=== PATIENT | male | born 1980 | race Caucasian/White ===

== ENCOUNTER 2018-04-06 19:28 | Emergency (ER) | payer MEDICAID, OTHER ==
[~2018-04-06] VITALS: Ht 180.3 cm; Wt 111.1 kg
--- NOTE | 2018-04-06 19:42 | ED General ---
General Stated Complaint: SEIZURE History of Present Illness Date Seen by Provider: Apr 06, 2018 Time Seen by Provider: 19:34 The patient is a very pleasant 37-year-old male who presents for evaluation of seizure-like activity. He states that he had a laparoscopic cholecystectomy earlier today and was discharged home from same day surgery. He states that approximately 4 hours after the surgery was done he took a hydrocodone which he had been prescribed and shortly after that had 2 episodes of seizure-like activity which he states was witnessed by his . He tells me that he has never had a seizure in his life. He denies any history of alcohol abuse or substance abuse. He arrives in the emergency department via EMS. His is not yet here to provide any additional history. His only complaint currently is that he is extremely thirsty. He specifically denies headache, neck pain, vision changes, focal weakness or numbness, chest pain, shortness of breath, abdominal or back pain, fevers or chills, nausea or vomiting. He states that he feels "pretty good" at this time. Allergies and Home Medications Allergies Coded Allergies: morphine (Verified Allergy, Unknown, 04/06/18) Patient Home Medication List Home Medication List Reviewed: Yes Review of Systems Review of Systems Constitutional: no symptoms reported EENTM: other (dry mouth) Respiratory: no symptoms reported Cardiovascular: no symptoms reported Gastrointestinal: abdominal pain (mild generalized) Genitourinary: no symptoms reported Musculoskeletal: no symptoms reported Skin: no symptoms reported Psychiatric/Neurological: Seizure Hematologic/Lymphatic: No Symptoms Reported Immunological/Allergic: no symptoms reported All Other Systems Reviewed Negative Unless Noted: Yes Past Wcwdhoq-Dtsnzu-Mmbrdr Hx Past Med/Social Hx: Reviewed Nursing Past Med/Soc Hx Patient Social History Recent Foreign Travel: No Contact w/Someone Who Travel: No Family Medical History Reviewed Nursing Family Hx Physical Exam Vital Signs Vital Signs - First Documented 04/06/18 20:00 Temp 97.6 Pulse 89 Resp 20 B/P (MAP) 155/92 (113) Capillary Refill : Height, Weight, BMI Height: '" Weight: lbs. oz. kg; BMI Method: General Appearance: No Apparent Distress, WD/WN HEENT: PERRL/EOMI, TMs Normal, Pharynx Normal, Other (dry mucous membranes) Neck: Full Range of Motion, Normal Inspection, Non Tender, Supple Respiratory: Chest Non Tender, Lungs Clear, Normal Breath Sounds, No Accessory Muscle Use, No Respiratory Distress Cardiovascular: Regular Rate, Rhythm, No Edema, No Gallop Gastrointestinal: Normal Bowel Sounds, No Organomegaly, No Pulsatile Mass, Tenderness, Other (laparoscopic surgical wounds noted, no bleeding/drainage, diffuse mild tenderness, no distention) Extremity: Normal Capillary Refill, Normal Inspection Neurologic/Psychiatric: Alert, Oriented x3, No Motor/Sensory Deficits, Normal Mood/Affect, sponge hooker II-XII Norm as Tested Skin: Normal Color, Warm/Dry Progress/Results/Core Measures Suspected Sepsis SIRS Temperature: Pulse: Respiratory Rate: Laboratory Tests 04/06/18 20:20: White Blood Count 18.2H Blood Pressure / Mean: Laboratory Tests 04/06/18 20:20: Creatinine 0.96, Platelet Count 306, Total Bilirubin 1.2H Results/Orders Lab Results Laboratory Tests Test 04/06/18 20:20 Range/Units White Blood Count 18.2 H 4.3-11.0 10^3/uL Red Blood Count 5.02 4.35-5.85 10^6/uL Hemoglobin 14.3 13.3-17.7 G/DL Hematocrit 43 40-54 % Mean Corpuscular Volume 85 80-99 FL Mean Corpuscular Hemoglobin 28 25-34 PG Mean Corpuscular Hemoglobin Concent 34 32-36 G/DL Red Cell Distribution Width 12.3 10.0-14.5 % Platelet Count 306 130-400 10^3/uL Mean Platelet Volume 10.3 7.4-10.4 FL Neutrophils (%) (Auto) 92 H 42-75 % Lymphocytes (%) (Auto) 5 L 12-44 % Monocytes (%) (Auto) 3 0-12 % Eosinophils (%) (Auto) 0 0-10 % Basophils (%) (Auto) 0 0-10 % Neutrophils # (Auto) 16.8 H 1.8-7.8 X 10^3 Lymphocytes # (Auto) 0.8 L 1.0-4.0 X 10^3 Monocytes # (Auto) 0.5 0.0-1.0 X 10^3 Eosinophils # (Auto) 0.0 0.0-0.3 10^3/uL Basophils # (Auto) 0.0 0.0-0.1 10^3/uL Sodium Level 139 135-145 MMOL/L Potassium Level 4.1 3.6-5.0 MMOL/L Chloride Level 101 98-107 MMOL/L Carbon Dioxide Level 20 L 21-32 MMOL/L Anion Gap 18 H 5-14 MMOL/L Blood Urea Nitrogen 14 7-18 MG/DL Creatinine 0.96 0.60-1.30 MG/DL Estimat Glomerular Filtration Rate > 60 BUN/Creatinine Ratio 15 Glucose Level 138 H 70-105 MG/DL Calcium Level 8.8 8.5-10.1 MG/DL Corrected Calcium 8.6 8.5-10.1 MG/DL Total Bilirubin 1.2 H 0.1-1.0 MG/DL Aspartate Amino Transf (AST/SGOT) 37 H 5-34 U/L Alanine Aminotransferase (ALT/SGPT) 57 H 0-55 U/L Alkaline Phosphatase 72 40-136 U/L Total Protein 6.7 6.4-8.2 GM/DL Albumin 4.2 3.2-4.5 GM/DL My Orders Orders - MAXIM JADE DO Comprehensive Metabolic Panel (04/06/18 19:42) Saline Lock/Iv-Start (04/06/18 19:42) Cbc With Automated Diff (04/06/18 19:42) Ekg Tracing (04/06/18 19:42) Lorazepam Injection (Ativan Injection) (04/06/18 20:15) Ketorolac Injection (Toradol Injection) (04/06/18 20:15) Ns Iv 1000 Ml (Sodium Chloride 0.9%) (04/06/18 20:15) Manual Differential (04/06/18 20:20) Medications Given in ED Current Medications Medications Dose Ordered Sig/Miryam Route Start Time Stop Time Status Last Admin Dose Admin Lorazepam 1 mg ONCE ONCE IVP 04/06/18 20:15 04/06/18 20:16 DC 04/06/18 20:31 1 MG Vital Signs/I&O 04/06/18 20:00 Temp 97.6 Pulse 89 Resp 20 B/P (MAP) 155/92 (113) Capillary Refill : ECG Initial ECG Impression Date: Apr 06, 2018 Initial ECG Impression Time: 19:49 Initial ECG Rate: 77 Initial ECG Rhythm: Normal Sinus Initial ECG Intervals: Normal Initial ECG Impression: Normal Comment no acute ischemic findings, no STEMI, reviewed and interpreted by myself Departure Impression Primary Impression: Witnessed seizure-like activity Disposition: XFER SHT-TRM HOSP Condition: Stable Transfer Time Spoke to Accepting Phy: 20:35 Transfer Progress Notes @2034 - Brody Davis LITHOGRAPHING MACHINE OPERATOR at [facility] accepts the ER-to-ER transfer. Pt will require a head CT but our CT scanner is down. Pt is agreeable to the transfer. Pt is stable. No seizure-like activity since arrival. @2104 - Lab abnormalities likely secondary to surgery today. The patient is stable for transfer at this time. He has received 1 L of fluids IV and 1 mg of Ativan IV. He continues to be A and O 4. Transfer Time: 20:35 Transfer Facility: [facility] Method of Transfer: EMS Departure-Patient Inst. Referrals: UNKNOWN (PCP/Family) Primary Care Physician MAXIM JADE DO Apr 06, 2018 19:41
[2018-04-06] MEDS ORDERED: LORazepam INJ 2 MG/ML (ATIVAN) VIAL IVP ONE (20:15)
[2018-04-06] MEDS ORDERED: KETOROLAC 30 MG/ML VIAL IVP ONE (20:15)
[2018-04-06] MEDS ORDERED: NS IV 1000 ML 1,000 ML IV SCH (20:15)
--- NOTE | 2018-04-06 20:31 | NUR ---
to room to give ativan and toradol, patient refuses toradol at this time. denies pain. Dr hoover
[2018-04-06 20:36] LABS: HEMATOCRIT 43 % (40-54); HEMOGLOBIN 14.3 G/DL (13.3-17.7); LYMPHOCYTES % (AUTO) 5 % (12-44); MEAN CORPUSCULAR HEMOGLOBIN 28 PG (25-34); MEAN CORPUSCULAR HGB CONC 34 G/DL (32-36); MEAN CORPUSCULAR VOLUME 85 FL (80-99); MEAN PLATELET VOLUME 10.3 FL (7.4-10.4); MONOCYTES % (AUTO) 3 % (0-12); NEUTROPHILS % (AUTO) 92 % (42-75); PLATELET COUNT 306 10^3/uL (130-400); RED CELL DISTRIBUTION WIDTH 12.3 % (10.0-14.5); WHITE BLOOD COUNT 18.2 10^3/uL (4.3-11.0)
[2018-04-06 20:37] LABS: BASOPHILS % (AUTO) 0 % (0-10); EOSINOPHILS % (AUTO) 0 % (0-10); LYMPHOCYTES # (AUTO) 0.8 X 10^3 (1.0-4.0); MONOCYTES # (AUTO) 0.5 X 10^3 (0.0-1.0); NEUTROPHILS # (AUTO) 16.8 X 10^3 (1.8-7.8)
[2018-04-06] MEDS ORDERED: HYDROCO/APAP TAB 5-325MG (20:52)
[2018-04-06] MEDS ORDERED: PANTOPRAZOLE TAB 40MG (20:52)
[2018-04-06] MEDS ORDERED: LEVOTHYROXINE 112 MCG (20:52)
[2018-04-06 21:02] LABS: CHLORIDE 101 MMOL/L (98-107); POTASSIUM 4.1 MMOL/L (3.6-5.0); SODIUM 139 MMOL/L (135-145)
[2018-04-06 21:03] LABS: ALANINE AMINOTRANSFERASE 57 U/L (0-55); ALBUMIN 4.2 GM/DL (3.2-4.5); ALKALINE PHOSPHATASE 72 U/L (40-136); BILIRUBIN,TOTAL 1.2 MG/DL (0.1-1.0); BUN/CREATININE RATIO 15; CALCIUM 8.8 MG/DL (8.5-10.1); CARBON DIOXIDE 20 MMOL/L (21-32); CREATININE SERUM 0.96 MG/DL (0.60-1.30); GFR ESTIMATED > 60; GLUCOSE 138 MG/DL (70-105); TOTAL PROTEIN 6.7 GM/DL (6.4-8.2)
[2018-04-06 21:05] LABS: BAND NEUTROPHILS 5 %; LYMPHOCYTES % (MANUAL) 4 %; MONOCYTES % (MANUAL) 5 %; NEUTROPHILS % (MANUAL) 86 %
--- NOTE | 2018-04-06 21:16 | NUR ---
patient c/o pain, toradol now given
--- NOTE | 2018-04-06 22:00 | NUR ---
patient standing at bedside with staff to use the urinal
--- NOTE | 2018-04-06 22:50 | NUR ---
EMS here to tranport patient to [facility]
--- NOTE | 2018-04-07 00:06 | ED General ---
General Chief Complaint: Dizziness/Syncope Stated Complaint: SEIZURE Nursing Triage Note: patient verbalizes witnessed seizure with incontinence arrived via EMS Nursing Sepsis Screen: No Definite Risk Source of Information: Patient History of Present Illness Date Seen by Provider: Apr 06, 2018 Time Seen by Provider: 23:42 Initial Comments PT ARRIVES VIA EMS FROM [facility] PT IS HERE FOR CT OF HEAD, CT SCANNER AT [facility] IS DOWN AT THIS TIME 2317--RECEIVED CALL FROM DR. PAN, [facility]. HE REPORTS THAT PT IS DOING FINE NOW, AND IF CT SCAN OF HEAD IS NORMAL, HE WAS PLANNING ON SENDING PT HOME. PT HAD LAP CHOLECYST[facility]OM[facility] D[facility] TODAY [facility] BY [facility] APARICIO PT STATES HE "FELT GREAT" AFTER SURGERY, BUT "WAS A LITTLE LOOPY OFF AND ON FROM THE MEDICATIONS" STATES HE GOT HOME AROUND [id number] STATES HE TOOK HIS FIRST DOSE OF PAIN MEDICATION AROUND 1600--HYDROCODONE 5/325 SHORTLY AFTER TAKING THE MEDICATION, HE STATES HE "GOT COLD AND EVERYTHING GOT WHITE, AND I CALLED FOR MY , AND I LOOKED UP AND I SAW HER FACE AND IT WAS LIKE IT WAS IN A TUNNEL, THEN I WOKE UP COVERED IN URINE" STATES HE WAS NOT CONFUSED AT ALL WHEN HE WOKE UP. TOLD HIM THAT HE WAS SHAKING IN HIS ARMS AND LEGS AND HIS EYES ROLLED BACK EPISODE LASTED 40 SECONDS CALLED EMS, THEN REFUSED TRANSPORT PT STATES HE WAS DOING BETTER, THEN STATES " SOON I SAT UP I PASSED OUT OR HAD A SEIZURE--EVERYTHING KRYSTEN OUT AND EVERYTHING GOT BUZZY AND WHITE" AND "WOKE UP WITH SWEATS AND WAS REAL COLD" IS NOT SURE HOW LONG SECOND EPISODE LASTED CALLED EMS AGAIN AROUND 1800, AND THEN WENT TO [facility] PT HAS BEEN FINE SINCE THAT TIME PT STATES HE FEELS COMPLETELY FINE NOW. DOES HAVE SOME POST OP PAIN AND BLOATING FROM THE PROCEDURE NO NAUSEA/VOMITING NO CHEST PAIN NO SHORTNESS OF BREATH NO PALPITATIONS STATES HIS FINGERTIPS AND HIS HEELS WERE TINGLY AT THE TIME OF THE EPISODES, BUT NOT NOW. NO MOTOR DEFICITS. NO HISTORY OF SIMILAR STATES HE IS ALLERGIC TO MORPHINE, BUT IS NOT SURE OF REACTION PT DID EVENTUALLY AGREE TO ATIVAN AND TORADOL AT [facility] PT HAS NOT HAD ANYTHING TO EAT SINCE THE NIGHT BEFORE SURGERY HAS ONLY HAD SOME WATER AND ICE CHIPS TODAY. Allergies and Home Medications Allergies Coded Allergies: morphine (Verified Allergy, Unknown, 04/06/18) Patient Home Medication List Home Medication List Reviewed: Yes Review of Systems Review of Systems Constitutional: see HPI EENTM: no symptoms reported Respiratory: no symptoms reported Cardiovascular: see HPI; No chest pain, No palpitations; syncope Gastrointestinal: see HPI Genitourinary: incontinence Musculoskeletal: no symptoms reported Skin: no symptoms reported Psychiatric/Neurological: See HPI, Anxiety; Denies Headache Past Ycafadj-Bibaox-Kskehe Hx Past Med/Social Hx: Reviewed Nursing Past Med/Soc Hx Patient Social History Alcohol Use: Denies Use Recreational Drug Use: No Smoking Status: Never a Smoker 2nd Hand Smoke Exposure: No Recent Foreign Travel: No Contact w/Someone Who Travel: No Recent Infectious Disease Expo: No Recent Hopitalizations: No Physical Abuse: No Sexual Abuse: No Mistreated: No Fear: No Seasonal Allergies Seasonal Allergies: No Past Medical History Surgeries: Yes Appendectomy, Gallbladder, Tonsillectomy Respiratory: No Cardiac: No Neurological: No Gastrointestinal: Yes (FATTY LIVER; S/P CHOLECYSTECTOMY) Gastroesophageal Reflux, Liver Disease/Jaundice, Gall Bladder Disease Musculoskeletal: No Endocrine: Yes Hypothyroidsim HEENT: No Cancer: No Psychosocial: No Integumentary: No Blood Disorders: No Family Medical History Reviewed Nursing Family Hx Physical Exam Vital Signs Vital Signs - First Documented 04/06/18 04/06/18 20:00 23:43 Temp 97.6 Pulse 89 Resp 20 B/P (MAP) 155/92 (113) Pulse Ox 96 O2 Delivery Room Air Capillary Refill : Less Than 3 Seconds Height, Weight, BMI Height: 5'11.00" Weight: 245lbs. oz. 111.836549rv; BMI Method:Stated General Appearance: No Apparent Distress, WD/WN, Other (TALKING NON-STOP AT GREAT LENGTH.L LAUGHING/JOKING. DOES NOT APPEAR TO BE IN ANY DISCOMFORT OR DISTRESS. ) HEENT: PERRL/EOMI Respiratory: Normal Breath Sounds, No Accessory Muscle Use, No Respiratory Distress Cardiovascular: Regular Rate, Rhythm, No Edema, No JVD, No Murmur, Normal Peripheral Pulses Gastrointestinal: Soft, Tenderness (RUQ AND EPIGASTRIC TENDERNESS. INCISIONS AND DRESSINGS ARE INTACT. NO DRAINAGE OR BLEEDING) Neurologic/Psychiatric: Alert, Oriented x3, No Motor/Sensory Deficits, Normal Mood/Affect, luggage liner II-XII Norm as Tested Skin: Normal Color, Warm/Dry Progress/Results/Core Measures Suspected Sepsis Recent Fever Within 48 Hours: No Infection Criteria Present: None New/Unexplained Altered Menta: No Sepsis Screen: No Definite Risk SIRS Temperature:97.6 Pulse: 89 Respiratory Rate: 20 Laboratory Tests 04/06/18 20:20: White Blood Count 18.2H Blood Pressure 155 /92 Mean: 113 Laboratory Tests 04/06/18 20:20: Creatinine 0.96, Platelet Count 306, Total Bilirubin 1.2H Results/Orders Lab Results Laboratory Tests Test 04/06/18 20:20 Range/Units White Blood Count 18.2 H 4.3-11.0 10^3/uL Red Blood Count 5.02 4.35-5.85 10^6/uL Hemoglobin 14.3 13.3-17.7 G/DL Hematocrit 43 40-54 % Mean Corpuscular Volume 85 80-99 FL Mean Corpuscular Hemoglobin 28 25-34 PG Mean Corpuscular Hemoglobin Concent 34 32-36 G/DL Red Cell Distribution Width 12.3 10.0-14.5 % Platelet Count 306 130-400 10^3/uL Mean Platelet Volume 10.3 7.4-10.4 FL Neutrophils (%) (Auto) 92 H 42-75 % Lymphocytes (%) (Auto) 5 L 12-44 % Monocytes (%) (Auto) 3 0-12 % Eosinophils (%) (Auto) 0 0-10 % Basophils (%) (Auto) 0 0-10 % Neutrophils # (Auto) 16.8 H 1.8-7.8 X 10^3 Lymphocytes # (Auto) 0.8 L 1.0-4.0 X 10^3 Monocytes # (Auto) 0.5 0.0-1.0 X 10^3 Eosinophils # (Auto) 0.0 0.0-0.3 10^3/uL Basophils # (Auto) 0.0 0.0-0.1 10^3/uL Neutrophils % (Manual) 86 % Lymphocytes % (Manual) 4 % Monocytes % (Manual) 5 % Band Neutrophils 5 % Sodium Level 139 135-145 MMOL/L Potassium Level 4.1 3.6-5.0 MMOL/L Chloride Level 101 98-107 MMOL/L Carbon Dioxide Level 20 L 21-32 MMOL/L Anion Gap 18 H 5-14 MMOL/L Blood Urea Nitrogen 14 7-18 MG/DL Creatinine 0.96 0.60-1.30 MG/DL Estimat Glomerular Filtration Rate > 60 BUN/Creatinine Ratio 15 Glucose Level 138 H 70-105 MG/DL Calcium Level 8.8 8.5-10.1 MG/DL Corrected Calcium 8.6 8.5-10.1 MG/DL Total Bilirubin 1.2 H 0.1-1.0 MG/DL Aspartate Amino Transf (AST/SGOT) 37 H 5-34 U/L Alanine Aminotransferase (ALT/SGPT) 57 H 0-55 U/L Alkaline Phosphatase 72 40-136 U/L Total Protein 6.7 6.4-8.2 GM/DL Albumin 4.2 3.2-4.5 GM/DL My Orders Orders - CYNTHIA CISNEROS DO Ct Head Wo (04/06/18 23:42) Incentive Spirometry Initial (04/07/18 00:51) Incentive Spirometry (Nursing) Q2H (04/07/18 00:51) Medications Given in ED Current Medications Medications Dose Ordered Sig/Miryam Route Start Time Stop Time Status Last Admin Dose Admin Ketorolac Tromethamine 30 mg ONCE ONCE IVP 04/06/18 20:15 04/06/18 20:16 DC 04/06/18 21:16 30 MG Lorazepam 1 mg ONCE ONCE IVP 04/06/18 20:15 04/06/18 20:16 DC 04/06/18 20:31 1 MG Vital Signs/I&O 04/06/18 04/06/18 04/07/18 04/07/18 20:00 23:43 00:55 01:24 Temp 97.6 97.5 Pulse 89 99 70 Resp 20 18 16 B/P (MAP) 155/92 (113) 146/93 149/97 (114) Pulse Ox 96 97 O2 Delivery Room Air Room Air Room Air 04/07/18 00:00 Intake Total 400 ml Balance 400 ml Capillary Refill : Less Than 3 Seconds Blood Pressure Mean: 113 Progress Note : Progress Note PT HAD NO COMPLAINTS DURING ER STAY FREQUENT BELCHING, AND TALKS AT LENGTH ABOUT THE "CO2 GAS BUILDUP" IN HIS ABDOMEN PT REQUESTS INCENTIVE SPIROMETER AT DISMISSAL, "FOR THE GAS BUILD UP"--RT INSTRUCTED ON USE WILL DEFER TO PT'S SURGEON FOR FURTHER PAIN MEDICATIONS--PT ADVISED TO CALL HIS SURGEON LATER THIS MORNING FOR FOLLOW UP Diagnostic Imaging Comments CT HEAD--NO ACUTE PROCESS, PER [facility] VIA FAX @ [phone] Reviewed: Reviewed by Me Departure Impression Primary Impression: Witnessed seizure-like activity Additional Impressions: S/P laparoscopic cholecystectomy POSSIBLE ADVERSE MEDICATION REACTION Disposition: HOME, SELF-CARE Condition: Improved Transfer Time Spoke to Accepting Phy: 20:35 Departure-Patient Inst. Referrals: [facility] (PCP) Primary Care Physician USHA FELIX APRN (Family) Primary Care Physician Patient Instructions: Adverse Drug Reactions, Adult (DC), Seizures, Adult (DC) , Syncope (Fainting) (DC) Add. Discharge Instructions: LOTS OF CLEAR LIQUIDS--WATER, BROTH, JELLO, GATORADE DIET ADVISED BY YOUR SURGEON FOLLOW UP WITH YOUR SURGEON TODAY FOR FURTHER CARE RETURN TO ER IF WORSE All discharge instructions reviewed with patient and/or family. Voiced understanding. CYNTHIA CISNEROS DO Apr 07, 2018 00:06
[2018-04-07 00:55] VITALS: BP 149/97
--- NOTE | 2018-04-07 07:20 | Diagnostic Imaging Report ---
PROCEDURE: CT head without contrast. TECHNIQUE: Multiple contiguous axial images were obtained through the brain without the use of intravenous contrast. INDICATION: Seizure. The ventricles are normal in size, shape and position. There are no masses or hemorrhages. There are no extra-axial fluid collections. IMPRESSION: Negative CT head. I agree with preliminary interpretation. Dictated by: Dictated on workstation # [id number]
== END 2018-04-07 01:06 | disposition home or self-care (01) ==
LOC: EDUNIT# 19:28 → ER FS 19:30 → ER 04-07 01:06
DX: R25.9 Unspecified abnormal involuntary movements (principal); K21.9 Gastro-esophageal reflux disease without esophagitis; E03.9 Hypothyroidism, unspecified; Z87.19 Personal history of other diseases of the digestive system; Z90.49 Acquired absence of other specified parts of digestive tract; Z88.5 Allergy status to narcotic agent; Z90.89 Acquired absence of other organs
CPT/HCPCS: 36415; 70450; 80053; 85007; 85027; 94664; 96374; 96375

== ENCOUNTER → 2018-11-23 | Outpatient (CLI) | payer MEDICAID ==
[~2018-11-23] MED LIST: CATHETER FLUSH 10 ML SYR IV PRN; HOLD METFORMIN - RECEIVED CONTRAST 20 ML VIAL IV SCH; HYDROCO/APAP TAB 5-325MG; IOHEXOL 350 MG/ML 100 ML (OMNIPAQUE 350) VIAL IV ONE; LEVOTHYROXINE 112 MCG; NS 100 ML (IVPB) BAG IV ONE; PANTOPRAZOLE TAB 40MG
--- NOTE | 2018-11-23 10:50 | Diagnostic Imaging Report ---
PROCEDURE: CT abdomen and pelvis with and without contrast. TECHNIQUE: Precontrast acquisitions were acquired through the abdomen and pelvis. Multiple contiguous axial images were obtained through the abdomen and pelvis after the administration of intravenous contrast. Auto Exposure Controls were utilized during the CT exam to meet ALARA standards for radiation dose reduction. INDICATION: Suprapubic pain and abdominal wall mass as well as gross hematuria. COMPARISON: No prior studies are available for comparison. FINDINGS: The lung bases are clear. The liver demonstrates mild generalized low density consistent with hepatic steatosis. No discrete liver mass is detected. The gallbladder is surgically absent. No biliary ductal dilatation is seen. The pancreas and spleen are unremarkable. No adrenal mass is detected. Kidneys are unremarkable. No calculi are seen. There is no hydronephrosis. Aorta is non-aneurysmal. No central, retroperitoneal or mesenteric lymphadenopathy is detected. The bladder is unremarkable. Prostate is unremarkable. No definite iliac or inguinal lymphadenopathy is seen. There is a small nodule in the midline of the upper pelvis anteriorly anterior to the sigmoid measuring 15 mm x 11 mm, indeterminate. This may be a mildly enlarged lymph node. The bony structures are nonacute. No abdominal wall mass is detected. IMPRESSION: 1. Hepatic steatosis. 2. No evidence of urinary tract calculi or obstruction. 3. No abdominal wall mass is detected. There may be a very small fat-containing umbilical hernia. 4. Nonspecific 15 mm x 12 mm nodule in the midline anterior upper pelvis, perhaps a mildly enlarged lymph node. Follow-up could be performed to confirm stability. No acute features detected. Dictated by: Dictated on workstation # [id number]
== END ==
LOC: RAD FS 09:47
PROVIDERS: ATTEND Nurse Practitioner Family
DX: K76.0 Fatty (change of) liver, not elsewhere classified (principal); R10.2 Pelvic and perineal pain; R19.09 Other intra-abdominal and pelvic swelling, mass and lump; R31.0 Gross hematuria; R93.5 Abnormal findings on diagnostic imaging of other abdominal regions, including retroperitoneum
CPT/HCPCS: 74178

== ENCOUNTER → 2019-02-28 | Outpatient (CLI) | payer MEDICAID ==
[~2019-02-28] MED LIST changes: -CATHETER FLUSH 10 ML SYR IV PRN; -HOLD METFORMIN - RECEIVED CONTRAST 20 ML VIAL IV SCH; -IOHEXOL 350 MG/ML 100 ML (OMNIPAQUE 350) VIAL IV ONE; -NS 100 ML (IVPB) BAG IV ONE
--- NOTE | 2019-02-28 12:33 | Diagnostic Imaging Report ---
CHEST PA/LAT (2 VIEW) Indication: Right-sided chest pain Comparison: None available. Findings: No pulmonary mass or consolidation. No pleural effusion or pneumothorax. Normal heart size and mediastinal contours. No displaced rib fracture. Impression: No acute cardiopulmonary process. Dictated by: Dictated on workstation # [id number]
== END ==
LOC: RAD FS 12:04
PROVIDERS: ATTEND Nurse Practitioner Family
DX: R07.89 Other chest pain (principal)
CPT/HCPCS: 71046

== ENCOUNTER 2020-09-23 17:40 | Emergency (ER) | payer MEDICAID ==
[~2020-09-23] VITALS: Ht 180.3 cm; Wt 104.0 kg
--- NOTE | 2020-09-23 19:07 | ED Respiratory ---
General Chief Complaint: Respiratory Problems Stated Complaint: COVID POSITIVE, COVID SYMPTOMS Nursing Triage Note: PT AMBULATES TO ROOM #7 W/CO WEAKNESS, DIZZINESS, INTERMITTENT SOA, AND R CHEST WALL DISCOMFORT UPON INSPIRATION. PT REPORTS HIS TESTED + FOR COVID-19 ON 09/12/20 AND HE BEGAN TO EXPEREINCE SIMILAR SX. PT REPORTS ON 09/20/20 HE BEGAN TO EXPERIENCE INTERMITTENT SOA AND EPISODES OF DIZZINESS THAT PT DESCRIBES "VERTIGO AND SPACING OUT MID CONVERSATION." Source: patient Exam Limitations: no limitations History of Present Illness Date Seen by Provider: Sep 23, 2020 Time Seen by Provider: 18:50 Initial Comments Patient is a 39-year-old male who presents to the emergency department today with a chief complaint of concern for COVID-19. Patient states that his tested positive on September 12 and he started having similar symptoms so just assumed he had the infection. He is not vaccinated. Patient states that over the course of the last week he has been dizzy, intermittently short of air. He states that he is feeling "spaced out" very fatigued falling asleep during conversations. He states that he has a little bit of right upper chest tenderness and discomfort with deep breaths. Minimal cough. No congestion. He has had diarrhea. He states he is lost taste and smell. He states that the symptoms got so bad today that he felt like he needed to be seen. He was seen at the [facility] clinic in [place] and told that his oxygen saturations were at 85% and advised to come to the emergency department. On presentation the patient's oxygen saturations are 97/98%. He demonstrates no increased work of breathing. He is not tachycardic. His blood pressure is slightly hypertensive. He does demonstrate a little bit of increased pulse rate with position change. He takes thyroid medication and has been told in the past that he needs blood pressure medicine but chose to correct it "naturally" with diet exercise and gardening. No history of blood clots or family history of blood clots that the patient is aware of. He denies any swelling in his legs or pain in his legs. All other review of systems reviewed and negative except as stated above. Timing/Duration: week Severity: moderate Prior Episodes/Possible Cause: illness exposure Associated Symptoms: chest pain/soreness, dizziness, headache, lightheadedness, shortness of breath Allergies and Home Medications Allergies Coded Allergies: morphine (Verified Allergy, Unknown, 04/06/18) Patient Home Medication List Home Medication List Reviewed: Yes Review of Systems Review of Systems Constitutional: see HPI, dizziness EENTM: no symptoms reported Respiratory: short of breath Cardiovascular: chest pain Gastrointestinal: diarrhea Genitourinary: no symptoms reported Musculoskeletal: no symptoms reported Skin: no symptoms reported Psychiatric/Neurological: Headache, Other (dizziness) All Other Systems Reviewed Negative Unless Noted: Yes Past Iovrpoh-Prscld-Jynfka Hx Seasonal Allergies Seasonal Allergies: No Past Medical History Surgeries: Yes Appendectomy, Gallbladder, Tonsillectomy Respiratory: No Cardiac: No Neurological: No Gastrointestinal: Yes (FATTY LIVER; S/P CHOLECYSTECTOMY) Gastroesophageal Reflux, Liver Disease/Jaundice, Gall Bladder Disease Musculoskeletal: No Endocrine: Yes Hypothyroidsim HEENT: No Cancer: No Psychosocial: No Integumentary: No Blood Disorders: No Physical Exam Vital Signs - First Documented 09/23/20 18:28 Temp 36.9 Pulse 77 Resp 18 B/P (MAP) 142/99 (113) Pulse Ox 98 O2 Delivery Room Air Capillary Refill : Less Than 3 Seconds Height: 5'11.00" Weight: 245lbs. oz. 111.109807vd; 31.00 BMI Method:Stated General Appearance: WD/WN, no apparent distress Eyes: Bilateral Eye Normal Inspection, Bilateral Eye PERRL, Bilateral Eye EOMI HEENT: PERRL/EOMI Neck: full range of motion, supple Respiratory: lungs clear, normal breath sounds, no respiratory distress, no accessory muscle use Cardiovascular: regular rate, rhythm Gastrointestinal: non tender, soft Extremities: non-tender, normal inspection, no pedal edema, no calf tenderness Neurologic/Psychiatric: no motor/sensory deficits, alert, normal mood/affect, oriented x 3 Skin: normal color, warm/dry Progress/Results/Core Measures Suspected Sepsis SIRS Temperature: Pulse: 77 Respiratory Rate: 18 Laboratory Tests 09/23/20 19:10: White Blood Count 8.1 Blood Pressure 142 /99 Mean: 113 Laboratory Tests 09/23/20 19:10: Creatinine 1.08, Platelet Count 287 Results/Orders Lab Results Laboratory Tests Test 09/23/20 19:10 Range/Units White Blood Count 8.1 4.3-11.0 10^3/uL Red Blood Count 5.85 H 4.30-5.52 10^6/uL Hemoglobin 17.2 13.3-17.7 g/dL Hematocrit 50 40-54 % Mean Corpuscular Volume 86 80-99 fL Mean Corpuscular Hemoglobin 29 25-34 pg Mean Corpuscular Hemoglobin Concent 34 32-36 g/dL Red Cell Distribution Width 11.7 10.0-14.5 % Platelet Count 287 130-400 10^3/uL Mean Platelet Volume 10.1 9.0-12.2 fL Immature Granulocyte % (Auto) 0 % Neutrophils (%) (Auto) 69 42-75 % Lymphocytes (%) (Auto) 22 12-44 % Monocytes (%) (Auto) 6 0-12 % Eosinophils (%) (Auto) 3 0-10 % Basophils (%) (Auto) 0 0-10 % Neutrophils # (Auto) 5.6 1.8-7.8 10^3/uL Lymphocytes # (Auto) 1.8 1.0-4.0 10^3/uL Monocytes # (Auto) 0.5 0.0-1.0 10^3/uL Eosinophils # (Auto) 0.2 0.0-0.3 10^3/uL Basophils # (Auto) 0.0 0.0-0.1 10^3/uL Immature Granulocyte # (Auto) 0.0 0.0-0.1 10^3/uL D-Dimer <= 0.27 0.00-0.49 UG/ML Sodium Level 143 135-145 MMOL/L Potassium Level 3.4 L 3.6-5.0 MMOL/L Chloride Level 108 H 98-107 MMOL/L Carbon Dioxide Level 25 21-32 MMOL/L Anion Gap 10 5-14 MMOL/L Blood Urea Nitrogen 12 7-18 MG/DL Creatinine 1.08 0.60-1.30 MG/DL Estimat Glomerular Filtration Rate 76 BUN/Creatinine Ratio 11 Glucose Level 99 70-105 MG/DL Calcium Level 9.6 8.5-10.1 MG/DL SARS-CoV-2 RNA (RT-PCR) Detected H Not Detecte My Orders Orders - SEMAJ PARRA MD Ed Iv/Invasive Line Start (09/23/20 18:59) Covid 19 Inhouse Test (09/23/20 18:59) Cbc With Automated Diff (09/23/20 18:59) Basic Metabolic Panel (09/23/20 18:59) Chest 1 View, Ap/Pa Only (09/23/20 18:59) Fibrin Degradation Products (09/23/20 19:02) Ns Iv 1000 Ml (Sodium Chloride 0.9%) (09/23/20 19:15) Famotidine Tablet (Pepcid Tablet) (09/23/20 19:45) Antacid Suspension (Mylanta Suspension (09/23/20 19:45) Medications Given in ED Current Medications Medications Dose Ordered Sig/Miryam Route Start Time Stop Time Status Last Admin Dose Admin Al Hydrox/Mg Hydrox/Simethicone 30 ml ONCE ONCE PO 09/23/20 19:45 09/23/20 19:46 DC 09/23/20 19:43 30 ML Famotidine 20 mg ONCE ONCE PO 09/23/20 19:45 09/23/20 19:46 DC 09/23/20 19:43 20 MG Vital Signs/I&O 09/23/20 18:28 Temp 36.9 Pulse 77 Resp 18 B/P (MAP) 142/99 (113) Pulse Ox 98 O2 Delivery Room Air Capillary Refill : Less Than 3 Seconds Blood Pressure Mean: 113 Progress Note : Time: 20:28 Progress Note Patient reexamined, resting comfortably in the bed. Oxygen saturations 99%. Blood pressure is good, pulse is in the 60s. Patient continues to exhibit no signs of respiratory distress. Lungs are clear. Chest x-ray is reviewed and does not show any acute pathology. Labs are all reviewed also reassuring, D- dimer is negative. No clinical or objective findings to warrant further studies or imaging at this time. Patient is approximately 10 days into his course of COVID-19 and I suspect that he will continue to do well. He is outside the window for Regeneron does not meet any real inclusion criteria anyhow. Patient will be given an inhaler for home use for his shortness of breath. He is given good return precautions. He verbalizes understanding. All questions are sought and answered. Patient is stable for discharge. Diagnostic Imaging Diagonstic Imaging: Xray Plain Films/CT/US/NM/MRI: chest Comments [facility]. [place], [place] NAME: BOZENA RICHARDSON MED REC#: [id number] PT STATUS: REG ER : 1980 PHYSICIAN: SEMAJ PARRA MD ADMIT DATE: 09/23/20/ER Draft Date of Exam:09/23/20 CHEST 1 VIEW, AP/PA ONLY INDICATION: Shortness of breath and cough, Covid exposure. Frontal chest obtained at 0730 p.m. and compared to 02/28/2019. Heart and mediastinal silhouette are normal in appearance. The lungs are clear. There is no pneumothorax or pleural fluid. IMPRESSION: No acute process in the chest. Dictated on workstation # [id number] Dict: 09/23/201956 Trans: 09/23/201999 [facility] [id number] Interpreted by: RENETTA BERNARD MD Electronically signed by: Departure Impression Primary Impression: COVID-19 Disposition: 01 HOME, SELF-CARE Condition: Stable Departure-Patient Inst. Decision time for Depature: 20:29 Referrals: [facility] [place] (PCP) Primary Care Physician USHA FELIX APRN (Family) Primary Care Physician Patient Instructions: COVID-19 ED Add. Discharge Instructions: Continue to drink fluids to stay well-hydrated. Alternate Tylenol and/or ibuprofen as needed for pain/chest discomfort. Use your inhaler, the albuterol, 2 puffs every 4-6 hours as needed for shortness of breath. If you find that the inhaler is not helping, if you are getting more short of breath or if you develop any other new emergent concerning symptoms please come back to the emergency room for reevaluation. Scripts Albuterol Sulfate (PROAIR HFA) 1 Puff Puff 2 PUFF IH Q4H PRN for shortness of breath, #1 EA 1 PUFF = 90 MCG Prov: SEMAJ PARRA MD 09/23/20 SEMAJ PARRA MD Sep 23, 2020 19:07
[2020-09-23] MEDS ORDERED: NS IV 1000 ML 1,000 ML IV SCH (19:15)
[2020-09-23 19:22] LABS: BASOPHILS % (AUTO) 0 % (0-10); EOSINOPHILS # (AUTO) 0.2 10^3/uL (0.0-0.3); EOSINOPHILS % (AUTO) 3 % (0-10); HEMATOCRIT 50 % (40-54); HEMOGLOBIN 17.2 g/dL (13.3-17.7); LYMPHOCYTES # (AUTO) 1.8 10^3/uL (1.0-4.0); LYMPHOCYTES % (AUTO) 22 % (12-44); MEAN CORPUSCULAR HEMOGLOBIN 29 pg (25-34); MEAN CORPUSCULAR HGB CONC 34 g/dL (32-36); MEAN CORPUSCULAR VOLUME 86 fL (80-99); MEAN PLATELET VOLUME 10.1 fL (9.0-12.2); MONOCYTES # (AUTO) 0.5 10^3/uL (0.0-1.0); MONOCYTES % (AUTO) 6 % (0-12); NEUTROPHILS # (AUTO) 5.6 10^3/uL (1.8-7.8); NEUTROPHILS % (AUTO) 69 % (42-75); PLATELET COUNT 287 10^3/uL (130-400); WHITE BLOOD COUNT 8.1 10^3/uL (4.3-11.0)
[2020-09-23 19:37] LABS: CALCIUM 9.6 MG/DL (8.5-10.1); CREATININE SERUM 1.08 MG/DL (0.60-1.30); POTASSIUM 3.4 MMOL/L (3.6-5.0)
[2020-09-23] MEDS ORDERED: ANTACID SUSP 30 ML UDC (MYLANTA) PO ONE (19:45)
[2020-09-23] MEDS ORDERED: FAMOTIDINE 20 MG (PEPCID) TABLET PO ONE (19:45)
--- NOTE | 2020-09-23 20:00 | Diagnostic Imaging Report ---
INDICATION: Shortness of breath and cough, Covid exposure. Frontal chest obtained at 0730 p.m. and compared to 02/28/2019. Heart and mediastinal silhouette are normal in appearance. The lungs are clear. There is no pneumothorax or pleural fluid. IMPRESSION: No acute process in the chest. Dictated by: Dictated on workstation # [id number]
[2020-09-23] MEDS ORDERED: RT-ALBUINH IH (20:31)
[2020-09-23 21:00] VITALS: BP 140/108
--- OUTSIDE RECORDS SUMMARY | 2020-09-24 14:39 | XMS REPORT | Clinical Summary ---
Author Author [facility] Organization [facility] Address Unknown Phone Unavailable Care Team Providers Care Commercial Lines Account Executive Name Role Phone PCP Unavailable Allergies Not on File Medications Not on file Active Problems Not on file Social History Date Tobacco Use Types Packs/Day Years Used Never Assessed Sex Assigned at Date Recorded Not on file Last Filed Vital Signs Not on file Plan of Treatment Not on file Results Not on filefrom Last 3 Months
== END 2020-09-23 21:00 | disposition home or self-care (01) ==
LOC: EDUNIT# 17:40 → ER 17:42
DX: U07.1 COVID-19 (principal)
CPT/HCPCS: 36415; 71045; 80048; 85025; 85379; 87636